=== PATIENT | female | born 1960 | race Two or more races ===

== ENCOUNTER 2024-04-29 08:29 | Emergency (ER) | payer BC ==
[~2024-04-29] VITALS: Ht 175.3 cm; Wt 90.7 kg
[2024-04-29] MEDS ORDERED: FAMOtidine 10 MG/ML (4ML VIAL) IV ONE (09:00)
[2024-04-29] MEDS ORDERED: KETOROLAC TROMETHAMINE 60 MG VIAL IM ONE (09:00)
[2024-04-29] MEDS ORDERED: ONDANSETRON HCL 2 MG/ML VIAL IV ONE (09:00)
[2024-04-29] MEDS ORDERED: KETOROLAC TROMETHAMINE 30 MG VIAL ONE (09:07)
[2024-04-29] MEDS ORDERED: FAMOTIDINE/PF 20 MG/2 ML VIAL ONE (09:08)
[2024-04-29] MEDS ORDERED: ONDANSETRON HCL 2 MG/ML VIAL ONE (09:08)
[2024-04-29 10:06] LABS: INR 0.99; PARTIAL THROMBOPLASTIN TIME 23.4 SECONDS (22.0-34.0); PROTHROMBIN TIME 10.8 SECONDS (9.0-11.5)
[2024-04-29 10:16] LABS: ALBUMIN 3.8 gm/dL (3.4-5.0); BILIRUBIN TOTAL 2.77 mg/dL (0.3-1.2); CALCIUM 9.1 mg/dL (8.5-10.1); CREATININE SERUM 0.83 mg/dL (0.55-1.02); GFR 69.66; POTASSIUM 4.08 mEq/L (3.5-5.1); TOTAL PROTEIN 7.8 gm/dL (6.4-8.2)
[2024-04-29 10:44] LABS: HEMOGLOBIN 13.2 g/dL (12.0-15.00); MEAN CELL VOLUME 83.1 fL (80.00-100.00); MEAN CORPUSCULAR HEMOGLOBIN 27.5 pg (27.00-32.0); MEAN CORPUSCULAR HGB CONC 33.1 g/dl (32.0-36.0); PLATELET COUNT 284 K/uL (150-450); RED BLOOD COUNT 4.82 M/uL (4.00-6.00)
[2024-04-29] MEDS ORDERED: MEPERIDINE HCL/PF 50 MG/ML VIAL IM ONE (13:30)
== END 2024-04-29 16:29 | disposition home or self-care (01) ==
LOC: ER 08:31
PROVIDERS: General Practice
DX: R10.12 Left upper quadrant pain (principal); K80.20 Calculus of gallbladder without cholecystitis without obstruction